=== PATIENT | female | born 2000 | race Caucasian/White ===

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

== ENCOUNTER 2021-05-13 11:46 | Emergency (ER) | payer OTHER, BC ==
[~2021-05-13] VITALS: Ht 170.2 cm; Wt 77.3 kg
[2021-05-13 11:47] VITALS: TEMP 98.5
[2021-05-13] MEDS ORDERED: ELIQUIS 5MG PO (11:51)
[2021-05-13] MEDS ORDERED: ASPIRIN 81M81 MG/TA2 PO (11:51)
[2021-05-13] MEDS ORDERED: CAMILA0.35 MG PO (11:52)
[2021-05-13 12:39] LABS: BASO % 0.4 % (0.0-2.0); EOS # 0.1 (0.0-0.7); EOS % 0.6 % (0-4.0); GRAN # 7.1 (1.4-6.5); GRAN % 75.4 % (42.2-75.2); HEMATOCRIT 38.3 % (35.0-45.0); LYMPH # 1.8 (1.2-3.4); LYMPH % 19.3 % (20.0-51.0); MEAN CELL VOLUME 92 fl (80.0-95.0); MEAN CORPUSCULAR HEMOGLOBIN 31 pg (26.0-32.0); MEAN CORPUSCULAR HGB CONC 34 g/dl (33.0-37.0); MEAN PLATELET VOLUME 10.4 fl (7.4-10.4); MONO # 0.4 (0.1-0.6); MONO % 4.1 % (1.7-9.3); PLATELET COUNT 269 K/mm3 (130-400); RED BLOOD COUNT 4.17 M/mm3 (4.10-5.30); REDCELL DISTRIBUTION WIDTH-CV 12.2 % (11.5-14.5)
[2021-05-13 12:42] LABS: ALBUMIN 4.1 gm/dL (3.5-5.0); BILIRUBIN,TOTAL 0.6 mg/dL (0.2-1.2); CALCIUM 9.6 mg/dL (8.4-10.2); CREATININE, serum 0.77 mg/dL (0.57-1.11)
[2021-05-13 15:47] VITALS: BP 115/85; PULSE 77
== END 2021-05-13 15:48 | disposition home or self-care (01) ==
LOC: COL.ER 11:46
PROVIDERS: Personal Emergency Response Attendant
DX: S40.012A Contusion of left shoulder, initial encounter (principal); S20.212A Contusion of left front wall of thorax, initial encounter; S30.1XXA Contusion of abdominal wall, initial encounter; V89.2XXA Person injured in unspecified motor-vehicle accident, traffic, initial encounter
CPT/HCPCS: J2405; J7030; Q9967

== ENCOUNTER 2021-07-19 14:00 | Outpatient (RCR) | payer BC ==
[~2021-07-19 14:00] MED LIST: ASPIRIN 81M81 MG/TA2 PO; CAMILA0.35 MG PO; ELIQUIS 5MG PO
== END 2021-08-09 | disposition home or self-care (01) ==
LOC: MKS.ESL.PT
DX: I87.1 Compression of vein (principal); M79.89 Other specified soft tissue disorders; R60.0 Localized edema

== ENCOUNTER 2021-09-16 08:00 | Outpatient (RCR) | payer BC | END 2021-10-07 | disposition home or self-care (01) | LOC: MKS.ESL.PT | DX: I87.1 Compression of vein (principal) ==

== ENCOUNTER → 2021-11-25 13:34 | Outpatient (RCR) | payer BC | END | disposition home or self-care (01) | LOC: MKS.ESL.PT 10-08 15:00 | DX: I87.1 Compression of vein (principal); M79.89 Other specified soft tissue disorders ==

== ENCOUNTER → 2022-10-06 | Outpatient (CLI) | payer BC ==
[~2022-10-06] MED LIST changes: +NORCO 325 MG-51 TAB PO; +ZOFRAN ODT4 MG PO
== END ==
LOC: COL.RAD 11:01
DX: I87.1 Compression of vein (principal); Z95.820 Peripheral vascular angioplasty status with implants and grafts